=== PATIENT | male | born 2000 | race Native Hawaiian/Other Pacific Islander ===

== ENCOUNTER 2023-06-14 12:25 | Emergency (ER) | payer OTHER ==
[~2023-06-14] VITALS: Ht 175.3 cm; Wt 106.6 kg
[2023-06-14 12:41] VITALS: BP 118/68; TEMP 98.7
== END 2023-06-14 14:30 | disposition still patient (30) ==
LOC: ED 12:25
DX: B02.9 Zoster without complications (principal); S80.812A Abrasion, left lower leg, initial encounter
CPT/HCPCS: 99281